=== PATIENT | female | born 1985 | race Two or more races ===

== ENCOUNTER 2019-02-11 18:22 | Emergency (ER) | payer SELFPAY ==
[~2019-02-11] VITALS: Ht 152.4 cm; Wt 95.5 kg
[2019-02-11] MEDS ORDERED: PERTUSS(ACELL),DIPH,TET VAC/PF 0.5 ML VIAL IM ONE (20:45)
[2019-02-11] MEDS ORDERED: BACITRACIN 0.9 GM PACKET OINTMENT TP ONE (21:45)
[2019-02-11 22:02] VITALS: BP 110/71
== END 2019-02-11 22:17 | disposition home or self-care (01) ==
LOC: EMS 18:26
DX: S61.012A Laceration without foreign body of left thumb without damage to nail, initial encounter (principal); W26.0XXA Contact with knife, initial encounter; Y93.89 Activity, other specified; Y92.89 Other specified places as the place of occurrence of the external cause; Y99.8 Other external cause status
CPT/HCPCS: 12001; 90471; 90715